=== PATIENT | female | born 1970 | race Caucasian/White ===

== ENCOUNTER 2016-10-09 17:14 | Emergency (ER) | payer SELFPAY ==
--- NOTE | 2016-10-09 17:23 | UC ---
Knee Pain HPI - HPI Summary HPI Summary: 46 YEAR OLD FEMALE PRESENTS WITH COMPLAINS OF RIGHT KNEE PAIN AFTER FALLING AT WORK. - History of Current Complaint Chief Complaint: UCLowerExtremity Stated Complaint: KNEE INJURY (WC) Time Seen by Provider: 10/09/16 17:22 Hx Last Menstrual Period: 09/22/16 - Allergies/Home Medications Allergies/Adverse Reactions: Allergies Allergy/AdvReac Type Severity Reaction Status Date / Time Penicillins Allergy Hives Verified 10/09/16 17:21 PMH/Surg Hx/FS Hx/Imm Hx Previously Healthy: Yes Other History Of: Negative For: HIV, Hepatitis B, Hepatitis C, Anticoagulant Therapy - Surgical History Surgical History: Yes Surgery Procedure, Year, and Place: tonsillectomy. nasal surgery for fx - Family History Known Family History: Positive: None - Social History Alcohol Use: None Substance Use Type: None Smoking Status (MU): Former Smoker Have You Smoked in the Last Year: No When Did the Patient Quit Smoking/Using Tobacco: 5 years ago - Immunization History Most Recent Influenza Vaccination: never Most Recent Tetanus Shot: up to date Review of Systems Constitutional: Negative Skin: Negative Eyes: Negative ENT: Negative Respiratory: Negative Cardiovascular: Negative Gastrointestinal: Negative Genitourinary: Negative Motor: Negative Neurovascular: Negative Musculoskeletal: Decreased ROM - RIGHT KNEE SWELLING, Other: Neurological: Negative Psychological: Negative All Other Systems Reviewed And Are Negative: Yes Physical Exam Triage Information Reviewed: Yes Vital Signs: Initial Vital Signs Temp 37.2 C 10/09/16 17:17 Pulse 94 10/09/16 17:17 Resp 12 10/09/16 17:17 BP 134/98 10/09/16 17:17 Pulse Ox 99 10/09/16 17:17 Eye Exam: Normal ENT Exam: Normal Dental Exam: Normal Neck exam: Normal Neck: Positive: 1 Respiratory Exam: Normal Cardiovascular Exam: Normal Abdominal Exam: Normal Musculoskeletal: Positive: Other: - RIGHT KNEE SWELLING Neurological Exam: Normal Psychological Exam: Normal Skin Exam: Normal Knee Pain Course/Dx - Differential Dx/Diagnosis Provider Diagnoses: RIGHT KNEE SPRAIN Discharge - Discharge Plan Condition: Stable Disposition: HOME Prescriptions: Meloxicam [Mobic] 7.5 mg PO BID PC #30 tab Patient Education Materials: Knee Pain (ED) Forms: *Work Release Referrals: No Primary Care Phys,NOPCP [Primary Care Provider] -
[2016-10-09 17:25] VITALS: BP 134/98
--- NOTE | 2016-10-09 19:02 | RAD ---
INDICATION: Right knee pain after a fall COMPARISON: None TECHNIQUE: 4 view radiograph of the right knee. FINDINGS: The visualized bones are well-corticated and properly aligned. The joint spaces are properly maintained. There is a small to moderate joint effusion seen in the lateral view radiograph. There is no acute fracture, dislocation or other focal bony abnormality. IMPRESSION: Small to moderate right knee joint effusion without radiographically apparent acute bony abnormality. If the patient's symptoms persist, follow-up imaging is recommended.
== END 2016-10-09 18:06 | disposition home or self-care (01) ==
LOC: UCEAST 17:14
DX: S83.91XA Sprain of unspecified site of right knee, initial encounter (principal); W19.XXXA Unspecified fall, initial encounter; Y93.9 Activity, unspecified; Y99.9 Unspecified external cause status
CPT/HCPCS: 99212; G0463

== ENCOUNTER 2019-05-12 12:25 | Emergency (ER) | payer OTHER ==
--- NOTE | 2019-05-12 14:17 | UC ---
FLU HPI - HPI Summary HPI Summary: 49yo female presenting with fever, chills, body aches, sore throat, and mild cough that began on Sunday 05/07 and has "mostly resolved" today. Patient notes subjective fevers. Denies nausea and vomiting. Denies sob and wheezing. Denies h /o asthma, copd. Nonsmoker. Patient states she was in [place] on 04/23/2019 through 04/29/2019 and flew back into [place]. Denies others around her with similar symptoms. - History of Current Complaint Chief Complaint: UCGeneralIllness Stated Complaint: COUGH,FEVER,SORE THROAT,ACHES Time Seen by Provider: 05/12/19 13:41 Hx Obtained From: Patient Hx Last Menstrual Period: 05/06/19 Pain Intensity: 0 - Allergy/Home Medications Allergies/Adverse Reactions: Allergies Allergy/AdvReac Type Severity Reaction Status Date / Time Penicillins Allergy Hives Verified 05/12/19 13:47 Home Medications: Home Medications NK [No Home Medications Reported] 05/12/19 [History Confirmed 05/12/19] PMH/Surg Hx/FS Hx/Imm Hx Previously Healthy: Yes Other History Of: Negative For: HIV, Hepatitis B, Hepatitis C, Anticoagulant Therapy - Surgical History Surgical History: Yes Surgery Procedure, Year, and Place: tonsillectomy. nasal surgery for fx - Family History Known Family History: Positive: None - Social History Alcohol Use: None Substance Use Type: None Smoking Status (MU): Former Smoker Length of Time of Smoking/Using Tobacco: 3 years Have You Smoked in the Last Year: No When Did the Patient Quit Smoking/Using Tobacco: 2010 - Immunization History Most Recent Influenza Vaccination: never Most Recent Tetanus Shot: up to date Review of Systems All Other Systems Reviewed And Are Negative: Yes Constitutional: Positive: Fever, Chills, Fatigue ENT: Positive: Sore Throat Respiratory: Positive: Cough. Negative: Shortness Of Breath Cardiovascular: Positive: Negative Gastrointestinal: Positive: Negative Musculoskeletal: Positive: Myalgia Neurological/Mental Status: Positive: Negative Physical Exam - Summary Physical Exam Summary: Vital Signs Reviewed: Yes A+Ox3, no distress, well-appearing Eyes: Conjunctiva Clear ENT: Hearing grossly normal, TM x 2 clear, moist, uvula midline, no exudate, no erythema Neck: Positive: Supple, no lymphadenopathy Respiratory: Positive: No respiratory distress, No accessory muscle use + CTA throughout no w/r Cardiovascular: RRR nl s1, s2 no m/r Musculoskeletal Exam: SCHULTZ x 4 without difficulty Neurological: Positive: Alert Psychological: Positive: age appropriate behavior Skin: Positive: no rash, no ecchymosis Vital Signs: Initial Vital Signs Temp 0 F 05/12/19 13:48 Pulse 0 05/12/19 13:48 Resp 0 05/12/19 13:48 BP 0/0 05/12/19 13:48 Pulse Ox 0 05/12/19 13:48 Lab Results 05/12/19 05/12/19 Range/Units 14:15 14:18 Influenza A (Rapid) Negative (Negative) Influenza B (Rapid) Negative (Negative) Group A Strep Rapid Negative (Negative) Flu Course/Dx - Course Course Of Treatment: Negative rapid strep and flu tests. VS WNL, lung sounds clear, and well- appearing. ORION Noble spoke with infection control department does not require covid19 testing for this patient at this time based on history. I discussed viral illness with the patient and instructed to continue symptomatic treatment. Instructed to contact via phone her primary care doctor or the health department if she experiences new or worsening symptoms. Patient voiced understanding and agreed with the treatment plan. - Differential Dx/Diagnosis Differential Diagnosis/HQI/PQRI: Influenza, Upper Respiratory Infection Provider Diagnosis: Flu-like symptoms Discharge ED - Sign-Out/Discharge Documenting (check all that apply): Patient Departure All imaging exams completed and their final reports reviewed: No Studies - Discharge Plan Condition: Stable Disposition: HOME Patient Education Materials: Viral Syndrome (ED) Forms: *Work Release Additional Instructions: As discussed, your strep and flu tests were negative today. Your symptoms are likely caused by virus and seemed to be resolving without treatment. You may continue with ibuprofen and/or Tylenol as directed. Get plenty of rest and fluids. Contact your primary care provider or the health department if you develop new or worsening symptoms. - Billing Disposition and Condition Condition: STABLE Disposition: Home
[2019-05-12 14:27] VITALS: BP 133/82
[2019-05-12 14:30] LABS: Influenza A Molecular Negative (Negative); Influenza B Molecular Negative (Negative)
== END 2019-05-12 15:05 | disposition home or self-care (01) ==
LOC: UCEAST 12:25
DX: R50.9 Fever, unspecified (principal); J02.9 Acute pharyngitis, unspecified; M79.10 Myalgia, unspecified site; R05 Cough; Z88.0 Allergy status to penicillin; Z87.891 Personal history of nicotine dependence
CPT/HCPCS: 87651; 99211; G0463